=== PATIENT | female | born 1955 | race Caucasian/White ===

== ENCOUNTER → 2017-08-05 | Outpatient (CLI) | payer BC, OTHER | LOC: RAD 13:35 | DX: Z12.31 Encounter for screening mammogram for malignant neoplasm of breast (principal) ==

== ENCOUNTER → 2019-04-07 | Outpatient (CLI) | payer OTHER | LOC: ULTRA 04:14 | DX: N28.1 Cyst of kidney, acquired (principal); M85.80 Other specified disorders of bone density and structure, unspecified site; N63.10 Unspecified lump in the right breast, unspecified quadrant; R92.2 Inconclusive mammogram; R10.2 Pelvic and perineal pain; Z90.49 Acquired absence of other specified parts of digestive tract; Z78.0 Asymptomatic menopausal state ==

== ENCOUNTER → 2021-06-04 | Outpatient (CLI) | payer OTHER | LOC: RAD 13:07 | PROVIDERS: ATTEND Obstetrics & Gynecology | DX: N63.20 Unspecified lump in the left breast, unspecified quadrant (principal); N83.209 Unspecified ovarian cyst, unspecified side; N63.10 Unspecified lump in the right breast, unspecified quadrant; R92.2 Inconclusive mammogram ==